=== PATIENT | female | born 1955 | race Caucasian/White ===

== ENCOUNTER 2017-03-12 20:25 | Inpatient (IN) | payer OTHER ==
[~2017-03-12] VITALS: Ht 165.1 cm; Wt 71.2 kg
[2017-03-12 20:50] VITALS: BP 140/95; PULSE 89; RESP 16; O2SAT 97
[2017-03-12 21:14] LABS: BASOPHILS % (AUTO) 0.2 % (0-3); EOSINOPHILS % (AUTO) 1.2 % (0-5); MONOCYTES % (AUTO) 4.8 % (4-12); Mean Corpuscular Hemoglobin 32.2 pg (27.0-35.0); Mean Corpuscular Volume 95.8 fL (81-100); NEUTROPHILS % (AUTO) 80.4 % (40-74); Platelet Count 252 bil/L (150-400)
[2017-03-12 21:35] LABS: Magnesium 2.1 mg/dL (1.6-2.6)
--- NOTE | 2017-03-12 22:02 | ED.REPORT ---
HPI-Abd Pain F 40 and Over Date of Service Mar 12, 2017 ED Provider: Darell Alexis MD Pt is a 61 y/o female w/ a hx of HTN, HLD, presenting to the ED c/o stabbing mid -back pain w/ radiation to the LUQ onset 1 day ago. She c/o associated pleuritic pain. She denies rash, CP, SOB, nausea. She has no history of shingles. She was moving a bunch of tables yesterday and thinks she may have strained her muscle. She was seen at Urgent Care and told to come to the ED for a possible CT scan. Nursing Notes Stated Complaint: ABDOMINAL/BACK PAIN Chief Complaint: Female Abdominal Pain Nursing Notes Reviewed: Yes Allergies: Coded Allergies: Sulfa (Sulfonamide Antibiotics) (Verified Adverse Reaction, Unknown, vomiting, 03/12/17) codeine (Verified Adverse Reaction, Unknown, vomiting, 03/12/17) General Time Seen by MD: 21:55 Chief Complaint Other (back pain) Hx Obtained From: Patient Arrived By: Walk-in Sudden in Onset?: No Onset Occurred: Yesterday Symptom Duration: Since onset Progression since Onset: Constant Location: : Back Quality: Painful, Stabbing Radiation: : LUQ Severity: Current: Moderate Severity: Maximum: Moderate Similar Sx Previous: No Past Medical History Past Medical History Hx PACs Hypertension Hyperlipidemia GERD Fibromyalgia Hypothyroidism Mild anxiety Stuart thyroiditis Cervical spinal stenosis Past Surgical History Colonoscopy Smoking History Unknown if Ever Smoker Social History Drug Use: Denies drug use Ambulatory Status Independent Review of Systems Respiratory: Reports: Pleuritic pain, Denies: Shortness of breath Cardiovascular: Denies: Chest pain GI: Reports: Abdominal pain, Denies: Nausea, Vomiting Musculoskeletal: Reports: Back pain Complete sys rev & neg: except as marked. Skin: Denies Rash Physical Exam Vital Signs Vital Signs (First) Date Time Temp Pulse Resp B/P Pulse Ox O2 Delivery O2 Flow Rate FiO2 03/12/17 20:50 36.9 89 16 140/95 97 Room Air Initial VS: Reviewed, Vital signs normal Head / Eyes: Atraumatic, Normocephalic, PERRL ENT: Mucous membranes moist, Conjunctiva normal, No scleral icterus Neck: Supple, Full range of motion Extremities: Vascular intact, Neuro intact, No swelling, No tenderness Neurologic: Alert, Oriented, Nonfocal Psychiatric: Mood/affect normal, Behavior normal, Normal thought content General/Constitutional: Awake, Alert, No acute distress, Cooperative, Not toxic appearing Respiratory / Chest: Breath sounds NL, Breath sounds = bilat, No respiratory distress, No rales, No rhonchi, No wheezing Cardiovascular: Heart rate NL, Regular rhythm, Heart sounds NL, No murmurs Abdomen: Atraumatic, Soft, No guarding, No rebound, No distention Tenderness/Guarding/Rebound: Positive: Tender LUQ... (Moderate) No rash Back: Full range of motion, Painless range of motion, No midline vertebral tend No rash Skin: Atraumatic, Color NL, No rash, Warm, Dry, Intact, Turgor NL, No swelling Interpretation & Diagnostics Lab Results Interpretation Result Diagram: 03/12/17 21003/12/17 210 Test 03/12/17 21:09 03/12/17 21:10 White Blood Count 10.5th/mm3 (3.8-10.1) Red Blood Count 4.51mil/mm3 (3.90-5.20) Hemoglobin 14.5g/dL (12.0-15.6) Hematocrit 43.2% (35.0-46.0) Mean Corpuscular Volume 95.8fL (81-100) Mean Corpuscular Hemoglobin 32.2pg (27.0-35.0) Mean Corpuscular Hemoglobin Concent 33.6% (32.0-37.0) Red Cell Distribution Width 12.0% (12.3-15.4) Platelet Count 252bil/L (150-400) Neutrophils (%) (Auto) 80.4% (40-74) Lymphocytes (%) (Auto) 13.2% (14-46) Monocytes (%) (Auto) 4.8% (4-12) Eosinophils (%) (Auto) 1.2% (0-5) Basophils (%) (Auto) 0.2% (0-3) Sodium Level 139mEq/L (134-144) Potassium Level 4.2mEq/L (3.5-5.2) Chloride Level 99mEq/L (97-108) Carbon Dioxide Level 24mmol/L (18-29) Blood Urea Nitrogen 10mg/dL (8-27) Creatinine 0.81mg/dL (0.57-1.00) Estimat Glomerular Filtration Rate 103mL/min (>59) Glucose Level 118mg/dL (60-99) Calcium Level 9.5mg/dL (8.5-10.1) Magnesium Level 2.1mg/dL (1.6-2.6) Total Bilirubin 0.3mg/dL (0.0-1.2) Aspartate Amino Transf (AST/SGOT) 36U/L (0-50) Alanine Aminotransferase (ALT/SGPT) 23U/L (0-32) Alkaline Phosphatase 70U/L (25-165) Total Protein 8.1g/dL (6.4-8.4) Albumin 4.6g/dL (3.4-5.0) Lipase 33U/L (13-60) Hold Arredondo Top Tube Received (Received) X-Ray Chest Interpretation Chest Xray Interpretation: IMPRESSION: Mildly reduced inspiratory volume, no acute disease. Dictated by: Wyatt Herron M.D. on 03/12/2017 at 22:01 Approved by: Wyatt Herron M.D. on 03/12/2017 at 22:02 View: Portable, AP & lat Interpretation / Wet Read by: Interpret - Radiologist CT Abd / Pelvis Interpretation Conclusion: 1. 6.3 x 6 cm proximal gastric mass involving the greater curvature with intraluminal and exophytic component is concerning for neoplasm. Trace left pleural effusion. 2. Normal appendix. No free air, abscess, or bowel obstruction. Interpreted by Hiram Shah MD Study type: Abdominal CT IV contrast Interpretation / Wet Read by: Interpret - Radiologist Re-Eval/Medical Decision Med Decision/Clinical Course 61-year-old female with left flank and left upper abdominal pain of one to 2 days duration. Labs are unremarkable. She is found to have a large mass in the back wall of the stomach. This is likely the cause of her pain. There is no significant free fluid and no evidence of intra-abdominal or gastric bleeding. Her case was discussed with Dr. Dhaliwal and with Dr. Chairez. She will be admitted to the hospitalist service with GI and surgical consultation. Source of Hx: Old records Re-Evaluation/Progress : Time of Eval: 00:01 Re-Evaluation/Progress Note: Pt rechecked. Informed pt of need for admission for gastric tumor workup. She understands that this may be cancer. Pt understands and agrees with plan for admission. All questions addressed. Consultation #1: Referral / Consult Name: Patsy Dhaliwal MD Consulted With: Surgeon Call Returned at: 00:00 Delivery Crew Member: Agrees with eval, Agrees with plan Note: Recommends admit to hospitalist for further workup. He will consult during admit if requested. Recommends consult with GI as well. Consultation #2: Referral / Consult Name: Martin Chairez MD Consulted With: Hospitalist Call Returned at: 00:08 Delivery Crew Member: Will see patient, Agrees with eval, Agrees with plan, Accepts admit Counseled Regarding: Diagnosis, Lab results, Need for admission Discharge & Departure Primary Impression: Gastric mass Additional Impression: LUQ abdominal pain Disposition: ADMITTED TO HOSPITAL Discharge Condition All VS Reviewed: Yes Condition: Improved Referrals: Ashley Cotter MD (PCP) Scribe Attestation Portions of this note were transcribed by Emanuel Hogue. I, Dr. Alexis personally performed the history, physical exam and medical decision-making; I reviewed and confirmed the accuracy of the information in the transcribed note. copies to: Ashley Cotter MD, Howard L MD Mar 12, 2017 22:02 EMANUEL HOGUE Mar 12, 2017 22:09
--- NOTE | 2017-03-12 22:04 | DRSVH ---
PROCEDURE: X-RAY CHEST, TWO VIEWS ([id number]) INDICATIONS: pain with deep inspiration TECHNIQUE: 2 views of the chest were acquired. COMPARISON: [facility], , CHEST 1VW (PORTABLE), 06/01/2012, 16:37. FINDINGS: Surgical changes and devices: None. Lungs and pleura: No pleural effusions or pneumothorax. Lungs are clear. Mediastinum: Mediastinal contours are normal. Heart size is normal. Bones and chest wall: No suspicious bony abnormalities. Soft tissues appear unremarkable. IMPRESSION: Mildly reduced inspiratory volume, no acute disease. Dictated by: Wyatt Herron M.D. on 03/12/2017 at 22:01 Approved by: Wyatt Herron M.D. on 03/12/2017 at 22:02
[2017-03-12] MEDS ORDERED: Ondansetron 2 mg/mL 2 mL Inj IVPUSH PRN (22:15)
[2017-03-12 22:26] VITALS: BP 154/91; PULSE 84; RESP 20; O2SAT 98
[2017-03-12] MEDS: HYDROmorphone 0.5 mg/0.5 mL iSecure Syringe IVPUSH PRN ×2 (22:50→23:39)
[2017-03-13] VITALS (9 sets, daily range): BP systolic 118–141; BP diastolic 67–96; PULSE 61–95; RESP 14–20; O2SAT 93–99
[2017-03-13] MEDS ORDERED: Ketorolac 15 mg/mL Inj IVPUSH ONE (00:10)
[2017-03-13] MEDS ORDERED: Ondansetron 2 mg/mL 2 mL Inj IVPUSH PRN (00:35)
[2017-03-13] MEDS ORDERED: Alum-Mag Hydrox-Simeth 30 mL Suspension PO PRN (00:35)
[2017-03-13] MEDS ORDERED: Polyethylene Glycol (PEG) 17 Gm Powder PO PRN (00:35)
[2017-03-13] MEDS: 0.9% Sodium Chloride 1,000 ML IV SCH ×4 (01:15→20:32)
--- NOTE | 2017-03-13 03:37 | PCM.HPMED ---
Subjective Date of Service Mar 13, 2017 Primary Provider: Admitting Physician: Martin Chairez MD Primary Care Physician: Ashley Cotter MD Attending Physician: Martin Chairez MD Chief Complaint: Abdominal pain History of Present Illness: Juana Lane is a 61-year-old woman with past medical history significant for hypertension, hyperlipidemia, GERD, fibromyalgia, hypothyroidism who presented to the [facility] emergency department today from urgent care due to severe sharp left upper quadrant and back pain that started 2 days ago. The patient states that the pain came on rather suddenly and she was nearly in tears from the pain. The pain is worse with movement. Patient denied any nausea , vomiting, diarrhea, constipation, melena, hematochezia. Patient denies any weight loss, chills, fever, night sweats. Patient denies any past history of H. pylori. Patient has had a prior colonoscopy but has never had an upper endoscopy. Patient was referred to the emergency department for a possible CT scan. In the emergency department patient's vital signs were stable. A CT of abdomen and pelvis was obtained which showed a 6.3 cm proximal gastric mass concerning for neoplasm. Dr. Dhaliwal, the refrigeration brazer/solderer surgeon, was contacted and has agreed to consult on the patient and recommended gastroenterology consultation as well. Review of Systems: A comprehensive review of systems was conducted with the patient and found to be negative except as above in the History of Present Illness. Allergies Coded Allergies: shellfish derived (Verified Allergy, Intermediate, 03/13/17) Sulfa (Sulfonamide Antibiotics) (Verified Adverse Reaction, Unknown, vomiting, 03/12/17) codeine (Verified Adverse Reaction, Unknown, vomiting, 03/12/17) Home Medications Juana Lane [id number] 1955 03/12/2017 07:25 PM 08/15 Start Date Medication Directions 07/04/2016 atenolol 25 mg tablet TAKE 1/2 TABLET BY MOUTH TWO TIMES EVERY DAY. estradiol 1 mg tablet take 1 tablet by oral route every day Horizant ER 600 mg tablet,extended release take 1 Tablet by oral route every day with food at about 5 p.m. 12/04/2016 levothyroxine 88 mcg tablet TAKE ONE TABLET BY MOUTH ONE TIME DAILY PROGESTERONE Take 1 (100mg tab) every day 03/22/2014 Vitamin D3 5,000 unit tablet take 1 tablet by oral route every evening PMH History of PACs Hyperlipidemia Hypertension GERD Fibromyalgia Hypothyroidism Anxiety Stuart's thyroiditis Cervical spine stenosis Surgical History Colonoscopy Epidural injections Family History Father has atrial fibrillation. Mother has lymphoma. No history of gastrointestinal cancers Social History Hx Alcohol Use: No Hx Substance Use: No Hx Tobacco Use: No Exam Vital Signs Vital Sign - Last Date Time Temp Pulse Resp B/P Pulse Ox O2 Delivery O2 Flow Rate FiO2 03/12/17 22:26 84 20 154/91 98 Room Air 03/12/17 20:50 36.9 Exam General: No acute distress, well-developed, well-nourished, appropriately interactive HEENT: Normocephalic, atraumatic. External ears without defect. Pupils equal, round, and reactive to light and accommodation. Anicteric sclerae, moist conjunctivae, and no lid lag. Oropharynx free of erythema and cobble stoning with moist mucosa. Neck: Supple with full range of motion. No jugular venous distension. No lymphadenopathy or thyromegaly. Cardiovascular: Regular rate and rhythm with no murmurs, rubs, or gallops appreciated Pulmonary: Clear to auscultation bilaterally with no crackles, wheezes, or rhonchi. Normal respiratory effort with no use of accessory muscles. Abdomen: Bowel tones present. Soft, mild tenderness in the left upper quadrant, nondistended. No hepatosplenomegaly or masses appreciated. Extremities: No clubbing, cyanosis, edema, or lymphadenopathy appreciated. Skin: Normal temperature, turgor, and texture; no rash, ulcers, or subcutaneous nodules appreciated. Neurological: Cranial nerves grossly intact. Normal muscle strength, tone, and bulk. Reflexes, coordination, and sensory function within normal limits. No known gait impairment. Psychiatric: Normal mood and affect. Alert and oriented to person, place, and time. Lab and Diagnostics Result Diagram: 03/12/17210803/12/172108 X-Rays, CTs and MRIs X-RAY CHEST, TWO VIEWS IMPRESSION: Mildly reduced inspiratory volume, no acute disease. Dictated by: Wyatt Herron M.D. on 03/12/2017 at 22:01 CT Abd / Pelvis Interpretation Conclusion: 1. 6.3 x 6 cm proximal gastric mass involving the greater curvature with intraluminal and exophytic component is concerning for neoplasm. Trace left pleural effusion. 2. Normal appendix. No free air, abscess, or bowel obstruction. Interpreted by Hiram Shah MD Study type: Abdominal CT IV contrast Assessment & Plan Juana Lane is a 61-year-old woman with past medical history significant for hypertension, hyperlipidemia, GERD, fibromyalgia, hypothyroidism who presented to the [facility] emergency department today from urgent care due to severe left upper quadrant and back pain that started 2 days ago. 6.3 x 6 cm proximal gastric mass, present on admission, active -Involving the greater curvature with intraluminal and exophytic component, concerning for neoplasm. -Dr. Dhaliwal consulted by the emergency department and has kindly agreed to see the patient. -Gastroenterology consultation to be obtained. Order placed, day team to contact. Chronic issues, present on admission, stable: Hypertension -Continue home medications Stuart's thyroiditis, in hypothyroid phase -Continue levothyroxine CODE STATUS: Full code Patient is admitted under inpatient status with expected length of stay greater than 2 midnights due to severity of presenting symptoms, risk of adverse event, and complexity of treatment plan. Attending Statement The patient was seen and examined together with Dr. Allred on 03/13 and I agree with the history, exam and plan as outlined in the note above. Yumiko Allred DO Mar 13, 2017 01:01 Martin Chairez MD Mar 13, 2017 03:52
[2017-03-13] MEDS ORDERED: LEVO88TA4 PO (03:59)
[2017-03-13] MEDS ORDERED: ATEN25TA PO (03:59)
[2017-03-13] MEDS ORDERED: ESTR1TAB24 PO (03:59)
[2017-03-13] MEDS ORDERED: PROG100C6 PO (03:59)
[2017-03-13] MEDS: HYDROmorphone 0.5 mg/0.5 mL iSecure Syringe IVPUSH PRN (05:28)
--- NOTE | 2017-03-13 08:11 | DRSVH ---
PROCEDURE: CT ABDOMEN AND PELVIS WITH CONTRAST ([id number]) INDICATIONS: LUQ abd pain TECHNIQUE: After the administration of intravenous contrast, 5 mm thick sections acquired from the diaphragm to the symphysis. 5 mm coronal and sagittal reformats were acquired. For radiation dose reduction, the following was used: automated exposure control, adjustment of mA and/or kV according to patient siz e. COMPARISON: None. FINDINGS: Preliminary report by overnight cashier radiology Image quality: Excellent. ABDOMEN: Lung bases: Lung bases are clear. Small left pleural effusion. Heart size is normal. Solid organs: Liver and spleen are normal in size and enhancement. Gallbladder is contracted. Bili layla system is non dilated. Pancreas enhances normally. No adrenal nodules. Kidneys demonstrate nor mal size and enhancement, without hydronephrosis. Peritoneum and bowel: A lobulated, partially calcified intrinsic and partially exophytic greater cur vature gastric mass is present. The mass measures 6.1 x 6.6 x 6.0 cm in size. The inferolateral porti on of the mass obliterates the fat plane between the mass and the spleen, possibly representing extri nsic splenic invasion. The also noted in the dependent portion of the stomach adjacent to the mass is a 1.4 x 1.8 cm oval radiodensity that could represent calcification or ingested tablet. Distally the stomach and duodenum appear normal. Small bowel loops demonstrate normal wall thickness and caliber. Normal appendix. Scattered colonic diverticulosis. No free fluid or air. Nodes and vessels: No retroperitoneal or mesenteric adenopathy by size criteria. Aorta and inferior vena cava are normal in size. Miscellaneous: No ventral hernias. PELVIS: Genitourinary: Bladder wall thickness is normal. Uterus and ovaries are unremarkable. Miscellaneous: No inguinal hernias or adenopathy. Bones: No suspicious bony lesions. No vertebral body compression fractures. Degenerative disc disea se with reactive sclerosis and grade 1 anterolisthesis L5-S1. L5 pars defects. Mild disc narrowing L4 -5. IMPRESSION: 1. Large greater curvature gastric mass with dystrophic calcifications and possible splenic invasion, highly suspect for malignancy. 2. Small left pleural effusion, probably reactive but indeterminate. 3. No evidence of osseous, organic or lee metastases. 4. Colonic diverticulosis without diverticulitis. 5. Degenerative lumbar disc disease. Spondylo-lysis and spondylolisthesis L5. Findings are concordant with the preliminary report. Dictated by: Go Machado M.D. on 03/13/2017 at 7:57 Approved by: Go Machado M.D. on 03/13/2017 at 8:09
[2017-03-13] MEDS ORDERED: Propofol 10,000 mCg/mL 20 mL Inj ONE (11:28)
--- NOTE | 2017-03-13 11:35 | PCM.CONSUR ---
Subjective Date of Service: Mar 13, 2017 History of Present Illness Ms. Lane is a 61 year old female who was in her usual state of health until 2 days when she gradually developed left mid back pain. This pain persisted and yesterday gave way to severe left upper quadrant abdominal pain. She describes the abdominal pain as sharp, radiating through to her back and unlike any abdominal pain she has experienced in the past. The pain worsens with movement and seems to be improve by laying still. Given the LUQ pain did not kieran, the patient decided to be evaluated in the ED. There she was found to have a large mass of the greater curve of her stomach, thereby prompting general surgery consult. With further questioning, the patient denies any nausea, vomiting, change in stools, SOB, chest pain, jaundice,adenopathy, or unexplained weight change. Reason for Consultation Gastric mass Allergy Allergies: Coded Allergies: shellfish derived (Verified Allergy, Intermediate, 03/13/17) Sulfa (Sulfonamide Antibiotics) (Verified Adverse Reaction, Unknown, vomiting, 03/12/17) codeine (Verified Adverse Reaction, Unknown, vomiting, 03/12/17) Medications Atenolol (Atenolol) 25 Mg Tablet 25 MG PO BID (Reported) Last Taken: 12.5 mg on 03/12/17 1800 Estradiol (Estradiol) 1 Mg Tablet 1 MG PO DAILY (Reported) Last Taken: 1 mg on 03/12/17 1800 Levothyroxine (Levothyroxine) 88 Mcg Tablet 88 MCG PO DAILY (Reported) Last Taken: 88 mcg on 03/12/17 0600 Progesterone,Micronized (Progesterone) 100 Mg Capsule 100 MG PO DAILY (Reported) Last Taken: 100mg on 03/12/17 1800 Past Surgical History Surgeries: Yes () Patient/Family Past Surgical: Positive for:: Accept Blood Products?, Denies:: Anesthesia Reactions, Blood Transfusions Social History 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 Hx Alcohol Use: No Hx Substance Use: No Hx Tobacco Use: No PMH HEENT History History of ENT Problems?: Yes HEENT History: Positive for:: Cataracts Sinus Problem (ALLERGIES) Denies:: Dysphagia Glaucoma Cardiovascular History History of Heart Problems?: Yes Cardiovascular History: Positive for:: Hypertension Irregular Heartbeat (pac'S) Denies:: Cardiac Surgery Chest Pain Congestive Heart Failure Edema Heart Murmur Pacemaker Thrombophlebitis Respiratory History of Respiratory Problem: No Neurological History Hx Neurologic Problems?: Yes Neurological History: Positive for:: Dizziness Denies:: Alzheimer's Disease CVA Dementia Headaches Parkinson's Disease Seizures Other Neurological History: FIBROMYALGIA AND NEUROPATHY Gastrointestinal History HX of GI Problems?: Yes Gastrointestinal History: Positive for:: Gastroesphageal Reflux Heartburn Denies:: Diverticulitis Gastrointestinal Bleeding Hepatitis Hiatal Hernia Rectal Bleeding Genitourinary History Hx of Gu Problems?: No Genitourinary History: Denies: HX of Hemodialysis Kidney Stones Urinary Tract Infection Female/Male History Reproductive History Female: Denies: Currently ? Endometriosis Pelvic Inflammatory DX Problems with Breasts? Musculoskeletal History Hx Musculoskeletal Problems?: Yes Musculoskeletal History: Positive for:: Back Injury Denies:: Joint Replacement Musculoskeletal Trauma Psycho Social History Hx of Psycho/Social Problems?: No Other History Other History: Positive for:: Thyroid Disease (hashimotos ) Social History Hx Alcohol Use: NoHx Substance Use: NoHx Tobacco Use: No Living Arrangement: with Family Family History Family History: The patient's mother had lymphoma of the intestine treated with chemotherapy Objective Exam Vital Signs & I/O Vital Sign- Last 8 Hours Date Time Temp Pulse Resp B/P Pulse Ox O2 Delivery O2 Flow Rate FiO2 03/13/17 10:15 36.5 95 18 125/71 99 Room Air 03/13/17 05:35 36.5 61 18 118/70 97 Room Air Intake and Output- Last 8 Hour 03/13/17 Cumulative From/Thru 07:00 03/12/17 20:50 - 03/13/17 06:56 Intake Total 368 ml 368 ml Output Total 0 ml 0 ml Balance 368 ml 368 ml Intake Oral 0 ml 0 ml IV Total 368 ml 368 ml Output Urine Total 0 ml 0 ml Lab & Micro Results Laboratory Tests Test 03/12/17 21:09 03/12/17 21:10 03/13/17 01:16 White Blood Count 10.5th/mm3 (3.8-10.1) Red Blood Count 4.51mil/mm3 (3.90-5.20) Hemoglobin 14.5g/dL (12.0-15.6) Hematocrit 43.2% (35.0-46.0) Mean Corpuscular Volume 95.8fL (81-100) Mean Corpuscular Hemoglobin 32.2pg (27.0-35.0) Mean Corpuscular Hemoglobin Concent 33.6% (32.0-37.0) Red Cell Distribution Width 12.0% (12.3-15.4) Platelet Count 252bil/L (150-400) Neutrophils (%) (Auto) 80.4% (40-74) Lymphocytes (%) (Auto) 13.2% (14-46) Monocytes (%) (Auto) 4.8% (4-12) Eosinophils (%) (Auto) 1.2% (0-5) Basophils (%) (Auto) 0.2% (0-3) Sodium Level 139mEq/L (134-144) Potassium Level 4.2mEq/L (3.5-5.2) Chloride Level 99mEq/L (97-108) Carbon Dioxide Level 24mmol/L (18-29) Blood Urea Nitrogen 10mg/dL (8-27) Creatinine 0.81mg/dL (0.57-1.00) Estimat Glomerular Filtration Rate 103mL/min (>59) Glucose Level 118mg/dL (60-99) Calcium Level 9.5mg/dL (8.5-10.1) Magnesium Level 2.1mg/dL (1.6-2.6) Total Bilirubin 0.3mg/dL (0.0-1.2) Aspartate Amino Transf (AST/SGOT) 36U/L (0-50) Alanine Aminotransferase (ALT/SGPT) 23U/L (0-32) Alkaline Phosphatase 70U/L (25-165) Total Protein 8.1g/dL (6.4-8.4) Albumin 4.6g/dL (3.4-5.0) Lipase 33U/L (13-60) Hold Arredondo Top Tube Received (Received) Hold Urine Received (Received) Result Diagram: 03/12/17210803/12/172108 Review of Systems: Constitutional: Negative, except as otherwise mentioned in the history above. Ophthalmologic: Negative, except as otherwise mentioned in the history above. Cardiovascular: Negative, except as otherwise mentioned in the history above. Respiratory: Negative, except as otherwise mentioned in the history above. Gastrointestinal: Negative, except as otherwise mentioned in the history above. Genitourinary: Negative, except as otherwise mentioned in the history above. Musculoskeletal: Negative, except as otherwise mentioned in the history above. Neurological: Negative, except as otherwise mentioned in the history above. Psychiatric: Negative, except as otherwise mentioned in the history above. Hematologic/Lymphatic: Negative, except as otherwise mentioned in the history above. Allergic/Immunologic: Negative, except as otherwise mentioned in the history above. Additional Information CT A/P: A lobulated, partially calcified intrinsic and partially exophytic greater curvature gastric mass is present. The mass measures 6.1 x 6.6 x 6.0 cm in size. The inferolateral portion of the mass obliterates the fat plane between the mass and the spleen, possibly representing extrinsic splenic invasion. The also noted in the dependent portion of the stomach adjacent to the mass is a 1.4 x 1.8 cm oval radiodensity that could represent calcification or ingested tablet. Distally the stomach and duodenum appear normal. Small bowel loops demonstrate normal wall thickness and caliber. Normal appendix. Scattered colonic diverticulosis. No free fluid or air. Nodes and vessels: No retroperitoneal or mesenteric adenopathy by size criteria. Aorta and inferior vena cava are normal in size. H&P Surgical Exam Exam General: Alert, Oriented X3, Cooperative HEENT: Within normal limits & unremarkable Neck: Within normal limits & unremarkable Respiratory: Clear to Auscultation Cardiac: Regular Rate/Rhythm, No Murmurs/Rubs/Gallops Abdomen: Normal bowel sounds, Soft, No tenderness, No masses Assessment & Plan Assessment 61F who presented with acute abdominal pain and was found to have a large exophytic mass along the greater curvature of her stomach. Certainly this mass is concerning for malignancy, and we need tissue diagnosis before proceeding with further workup or treatment. Plan: - Agree with plans for EGD with gastroenterology to obtain biopsy - Further surgical management pending pathology - Patient can likely be discharged and follow up as an outpatient - Ok for diet as tolerated as there is no evidence of GOO on axial imaging - Surgery will continue to follow. Please do not hesitate to call with questions or concerns. William Ross MD Mar 13, 2017 11:35
[2017-03-13] MEDS ORDERED: fentaNYL-PF 50 mCg/mL 2 mL Inj IVPUSH PRN (13:45)
--- NOTE | 2017-03-13 14:29 | PCM.CHPMED ---
Subjective Date of Service: Mar 13, 2017 Primary Physician: Admitting Physician: Martin Chairez MD Primary Care Physician: Ashley Cotter MD Attending Physician: Danny Domingo MD Chief Complaint: Chief Complaint: Abdominal pain History of Present Illness: Gastroenterology Consult Note Juana Lane is a 61-year-old woman with past medical history significant for hypertension, hyperlipidemia, GERD, fibromyalgia, hypothyroidism who presented to the [facility] emergency department yesterday evening from urgent care due to severe sharp left upper quadrant and back pain that started 3 days ago. We, gastroenterology, have been consulted due to CT findings of a 6.3 cm proximal gastric mass concerning for neoplasm. Of note the patient was in her general state of health prior to Saturday. The patient's symptoms started with some mild left lower back pain that she attributed to muscle spasm due to setting up for a family reunion that day. Pain continued and she was unable to sleep on her left side that evening. The next day, Saturday, she developed left upper quadrant sharp stabbing pain that has been consistent and not resolved since this time. The pain has progressively worsened which precipitated her presentation to urgent care and subsequently the ED. Patient denies any associated nausea, vomiting, fever, chills, melena, hematochezia, hematemesis, or weight loss. She has noted no worsening of her heartburn although she does have this intermittently which she treats with [id number] antacids. Patient denies any NSAID use as this upsets her stomach. Patient has no family history of gastric cancers although her mother did have lymphoma. Patient has never had an EGD. She did have a colonoscopy in 2005 which was normal and was told to follow-up in 10 years. Review of Systems: A comprehensive review of systems was conducted with the patient and found to be negative except as above in the History of Present Illness. PMH Past Medical History History of PACs Hyperlipidemia Hypertension GERD Fibromyalgia Hypothyroidism Anxiety Stuart's thyroiditis Cervical spine stenosis Surgical History Colonoscopy Epidural injections Home Medications Juana Lane [id number] 1955 03/12/2017 07:25 PM 08/15 Start Date Medication Directions 07/04/2016 atenolol 25 mg tablet TAKE 1/2 TABLET BY MOUTH TWO TIMES EVERY DAY. estradiol 1 mg tablet take 1 tablet by oral route every day Horizant ER 600 mg tablet,extended release take 1 Tablet by oral route every day with food at about 5 p.m. 12/04/2016 levothyroxine 88 mcg tablet TAKE ONE TABLET BY MOUTH ONE TIME DAILY PROGESTERONE Take 1 (100mg tab) every day 03/22/2014 Vitamin D3 5,000 unit tablet take 1 tablet by oral route every evening Allergies: Coded Allergies: shellfish derived (Verified Allergy, Intermediate, 03/13/17) Sulfa (Sulfonamide Antibiotics) (Verified Adverse Reaction, Unknown, vomiting, 03/12/17) codeine (Verified Adverse Reaction, Unknown, vomiting, 03/12/17) Family History Family History Father has atrial fibrillation. Mother has lymphoma. No history of gastrointestinal cancers. Social History Hx Alcohol Use: NoHx Substance Use: NoHx Tobacco Use: No Exam Vital Signs Vital Sign - Last Date Time Temp Pulse Resp B/P Pulse Ox O2 Delivery O2 Flow Rate FiO2 03/13/17 10:15 36.5 95 18 125/71 99 Room Air Intake and Output 03/12/17 03/12/17 03/13/17 Cumulative From/Thru 15:00 23:00 07:00 03/12/17 20:50 - 03/13/17 06:56 Intake Total 368 ml 368 ml Output Total 0 ml 0 ml Balance 368 ml 368 ml Intake Oral 0 ml 0 ml IV Total 368 ml 368 ml Output Urine Total 0 ml 0 ml General: Alert, Oriented X3, No Acute Distress Head: Normal Eyes: PERRLA, Scleral Anicteric Nose: Mucous Membr Moist/Isola Mouth: Mucous Membranes Dry Neck: Supple Chest & Lungs: Chest Wall Normal, Clear to auscultation & percussion Cardiovascular: Regular Rate/Rhythm, No Murmurs/Rubs/Gallops Abdomen: Tender (mild, LUQ), Non-distended, Normoactive bowel tones Musculoskeletal: Unremarkable, Normal Range of Motion Extremities: No cyanosis/clubbing/edma bilat Neurological: Grossly Neurologically Intact, Cranial Nerves 2-12 Intact Lab and Diagnostics Result Diagram: 03/12/17210803/12/172108 X-Rays, CTs and MRIs CT ABDOMEN AND PELVIS WITH CONTRAST ([id number]) IMPRESSION: 1. Large greater curvature gastric mass with dystrophic calcifications and possible splenic invasion, highly suspect for malignancy. 2. Small left pleural effusion, probably reactive but indeterminate. 3. No evidence of osseous, organic or lee metastases. 4. Colonic diverticulosis without diverticulitis. 5. Degenerative lumbar disc disease. Spondylo-lysis and spondylolisthesis L5. Dictated by: Go Machado M.D. on 03/13/2017 at 7:57 Approved by: Go Machado M.D. on 03/13/2017 at 8:09 Assessment & Plan Assessment Juana Lane is a 61-year-old woman with past medical history significant for hypertension, hyperlipidemia, GERD, fibromyalgia, hypothyroidism who presented to the [facility] emergency department yesterday evening from urgent care due to severe sharp left upper quadrant and back pain that started 3 days ago. Gastroenterology has been consulted due to CT findings of a 6.3 cm proximal gastric mass concerning for neoplasm. Recommendations: - Patient scheduled for endoscopic biopsy this afternoon. - Further recommendations pending pathology results from endoscopic biopsy. - Patient to remain nothing by mouth until after procedure. - Surgery has been consulted and we appreciate their recommendations as they will likely ultimately guide her treatment. - Patient will also likely need to oncology consult once pathology returns. Thank you for involving us in this patient's care. We will continue to follow. Problems: Pain Evaluation: Adequate Pain Control Resuscitation Status: CPR: Attempt Resuscitation Attending Statement Patient seen and examined. Agree with assessment and plan as described by Dr Bernal. AIDEN BERNAL DO Mar 13, 2017 10:40 Sd Sandoval MD Mar 13, 2017 22:43
--- NOTE | 2017-03-13 14:40 | PCM.ANEP1 ---
Post Anesthesia PACU Phase 1 Assessment Vital Signs Vital Signs Date Time Temp Pulse Resp B/P Pulse Ox O2 Delivery O2 Flow Rate FiO2 03/13/17 13:39 68 17 127/77 98 Room Air 03/13/17 10:15 36.5 95 18 125/71 99 Room Air Anesthetic Administered: GA, MAC Level of Alertness: Awake, talking LEON's with Equal Strength: Yes Pain: No Pain Scale Score: 5 Nausea or Vomiting: No CV Function & Hydration Stable: No Airway Device: n/a Oxygen Delivery: Nasal Cannula Lungs: Clear to Auscultation, Normal Air Movement Dermatome Level: Full Sensation PACU Phase 2 Assessment Complications: No Follow up Care: N/A Patient Instructions Provided: N/A Yobany Mcqueen MD Mar 13, 2017 14:40
--- NOTE | 2017-03-13 14:40 | PCM.HPANE ---
Patient Data Surgeon Admitting Provider:Martin Chairez MD Attending Provider:Danny Domingo MD Primary Care Physician:Ashley Cotter MD Other Provider: Reason for Visit Gastric Tumor Ht/WT & BMI Height (Feet): 5 Height (Inches): 5.00 Weight (Kilograms): 71.200 Body Mass Index 26.00 Allergies Coded Allergies: shellfish derived (Verified Allergy, Intermediate, 03/13/17) Sulfa (Sulfonamide Antibiotics) (Verified Adverse Reaction, Unknown, vomiting, 03/12/17) codeine (Verified Adverse Reaction, Unknown, vomiting, 03/12/17) Past Anesthesia History Anesthesia History: Denies:: Abnormal Airway, Anesthesia Reactions, Difficult Intubation, Fam Anesthesia Reaction, Fam Malignant Hypertherm, Malignant Hyperthermia Diabetes History Hx Diabetes?: No MRSA MRSA: No Medications Reported Medications Levothyroxine 88 Mcg [id number] Mcg PO DAILY Ref 0 03/13/17 Atenolol 25 Mg [id number] Mg PO BID #30 TABLET Ref 0 03/13/17 Progesterone,Micronized (Progesterone)100 Mg [id number] Mg PO DAILY 03/13/17 Estradiol 1 Mg Tablet1 Mg PO DAILY Ref 0 03/13/17 History History of ENT Problems?: Yes HEENT History: Positive for:: Cataracts Sinus Problem (ALLERGIES) Denies:: Abnormal Airway Difficult Intubation Dysphagia Glaucoma Hearing Problem TMJ Denture Type: None Teeth Condition: Within Normal Limits Hx of Heart Problems?: Yes Cardiovascular History: Positive for:: Hypertension Irregular Heartbeat (pac'S) Denies:: AICD Abdominal Aortic Aneurism Atrial Fibrillation Cardiac Surgery Chest Pain Congestive Heart Failure Coronary Artery Disease Edema Heart Murmur Pacemaker Peripheral Vascular Rheumatic Fever Thrombophlebitis Valvular Heart Disease Hx of Respiratory Problem?: No Respiratory History: Denies:: Asthma COPD Chest Surgery Cough Dyspnea Emphysema Hemoptysis Oxygen Administration Pneumonia Pulmonary Embolism Tuberculosis Use of C-PAP Machine Use of Inhalers / NEBS Hx Neurologic Problems?: Yes Neurological History: Positive for:: Dizziness Denies:: Alzheimer's Disease CVA Dementia Headaches Multiple Sclerosis Parkinson's Disease Peripheral Neuropathy Seizures TIA Other Neurological Pertinent: FIBROMYALGIA AND NEUROPATHY Hx of GI Problems?: Yes Gastrointestinal History: Denies:: Cirrhosis Diverticulitis Gall Bladder Disease Gastroesphageal Reflux Gastrointestinal Bleeding Heartburn Hepatitis Hiatal Hernia Liver Disease Rectal Bleeding Hx of Problems?: No Genitourinary History: Denies:: HX of Hemodialysis Kidney Stones Urinary Tract Infection HX of Peritoneal Dialysis: No Female Hx: Denies:: Currently Endometriosis Pelvic Inflammatory Problems with Breasts? Skin History: Denies:: History Skin Disorders? Pressure Ulcers Hx Musculoskeletal Problems?: Yes Musculoskeletal History: Positive for:: Back Injury Denies:: Degenerative Joint Fibromyalgia Joint Replacement Musculoskeletal Trauma Myasthenia Gravis Osteoarthritis Rheumatoid Arthritis Systemic Lupus Hx of Psycho/Social Problems?: No Psycho Social History: Denies:: Anxiety Bipolar Disorder Hx Depression Suicide Attempt Hx Surgeries?: Yes () Other History: Positive for:: Thyroid Disease (hashimotos ) History Blood Transfusions: Positive for:: Accept Blood Products? Denies:: Blood Transfusions Hx Diabetes: No Hx Alcohol Use: NoHx Substance Use: No Smoking Status: Never Smoker Have You Smoked inLast 12 mo: No Stop/Bang Treated for Sleep Apnea?: No Do You Have a CPAP Machine?: No S-Snoring: Do You Snore Loudly: Yes T-Tired: feel tired, fatigued: Yes O-Obsered: Observed not breath: No P-Blood Pressure: treated: Yes B- Body Mass Index > 35 kg/m2: No A- Age over 50: Yes N- Neck Large Circumference: No G- Gender Male: No JAJA Total Score: 4 Risk Assessment Category Category 1A: Patient has history of documented sleep apnea, and HAS NOT received any narcotic, sedative or anesthesia administration during this stay. Category 1B: Patient has history of documented sleep apnea, and HAS received any narcotic , sedative or anesthesia administration during this stay Category 2: Patient has SUSPECTED Obstructive Sleep Apnea, and HAS received any narcotic , sedative or anesthesia administration during this stay. Category 3: Patient has SUSPECTED Obstructive Sleep Apnea and HAS NOT received narcotic, sedative or anesthesia administration during this stay. Category 4: Outpatient in Procedural Areas with known sleep apnea or who screen positive for High Risk via the STOP/BANG questionnaire. Exam Exam Vital Signs Vital Signs Date Time Temp Pulse Resp B/P Pulse Ox O2 Delivery O2 Flow Rate FiO2 03/13/17 13:39 68 17 127/77 98 Room Air 03/13/17 10:15 36.5 95 18 125/71 99 Room Air General Appearance: Alert, Oriented X3, Cooperative, No Acute Distress HEENT/AIRWAY: MP 2, Neck Movement (from), Mouth Opening (3 fbMO) Lungs: Clear to Auscultation, Normal Air Movement Heart: Exam Unremarkable, Regular Rate/Rhythm, No Murmurs/Rubs/Gallops Meds/Labs/Diagnostics Admission Meds Current Medications Lorazepam (Ativan Inj) 0.5 mg ONCE ONCE IVPUSH Last administered on 03/13/17 00:20; Start 03/13/17 at 00:10; Stop 03/13/17 at 00:11; Status DC Ketorolac Tromethamine 15 mg 15 mg ONCE ONCE IVPUSH Last administered on 00:20; Start 03/13/17 at 00:10; Stop 03/13/17 at 00:11; Status DC Sodium Chloride (Normal Saline) 1,000 ml @ 100 mls/hr Q10H IV Last administered on 03/13/17 13:50; Start 03/13/17 at 00:32 Labs Test 03/12/17 21:09 03/12/17 21:10 03/13/17 01:16 White Blood Count 10.5th/mm3 (3.8-10.1) Red Blood Count 4.51mil/mm3 (3.90-5.20) Hemoglobin 14.5g/dL (12.0-15.6) Hematocrit 43.2% (35.0-46.0) Mean Corpuscular Volume 95.8fL (81-100) Mean Corpuscular Hemoglobin 32.2pg (27.0-35.0) Mean Corpuscular Hemoglobin Concent 33.6% (32.0-37.0) Red Cell Distribution Width 12.0% (12.3-15.4) Platelet Count 252bil/L (150-400) Neutrophils (%) (Auto) 80.4% (40-74) Lymphocytes (%) (Auto) 13.2% (14-46) Monocytes (%) (Auto) 4.8% (4-12) Eosinophils (%) (Auto) 1.2% (0-5) Basophils (%) (Auto) 0.2% (0-3) Sodium Level 139mEq/L (134-144) Potassium Level 4.2mEq/L (3.5-5.2) Chloride Level 99mEq/L (97-108) Carbon Dioxide Level 24mmol/L (18-29) Blood Urea Nitrogen 10mg/dL (8-27) Creatinine 0.81mg/dL (0.57-1.00) Estimat Glomerular Filtration Rate 103mL/min (>59) Glucose Level 118mg/dL (60-99) Calcium Level 9.5mg/dL (8.5-10.1) Magnesium Level 2.1mg/dL (1.6-2.6) Total Bilirubin 0.3mg/dL (0.0-1.2) Aspartate Amino Transf (AST/SGOT) 36U/L (0-50) Alanine Aminotransferase (ALT/SGPT) 23U/L (0-32) Alkaline Phosphatase 70U/L (25-165) Total Protein 8.1g/dL (6.4-8.4) Albumin 4.6g/dL (3.4-5.0) Lipase 33U/L (13-60) Hold Arredondo Top Tube Received (Received) Hold Urine Received (Received) Plan Impression Patient chart reviewed, patient interviewed and anesthestic plan with risks, benefits, and alternatives discussed, and informed consent obtained. NPO per Anesth. Guidelines: Yes ASA Physical Status: ASA2 Mod Systemic Disease Anesthetic Plan: GA, MAC Bene/Risks/Altern/Consents: Yes HP Complete Prior to Induction: Yes Yobany Mcqueen MD Mar 13, 2017 13:59
--- NOTE | 2017-03-13 15:07 | ENDO ---
[address] [address] ENDOSCOPY PROCEDURE PATIENT: JIM NEAL : 1955 MR#: [id number] ADMIT: 03/13/2017 JOB ID: [id number] DATE OF SERVICE: 03/13/2017 PROCEDURE: Esophagogastroduodenoscopy with biopsies. INDICATIONS: A 61-year-old female with acute onset of left upper quadrant pain. CAT scan revealed a gastric mass lesion. EGD is pursued. EQUIPMENT: GIFH-180J SEDATION: Monitored anesthesia as provided by Dr. Yobany Mcqueen (the patient reports that she has had a prior conscious sedation procedure; it in essence failed and she was quite uncomfortable in spite of these medications during colonoscopy some years ago.) COMPLICATIONS: None identified. PROCEDURE INFORMATION: After the risks and benefits were explained, written and verbal informed consent was obtained. The patient was brought into the endoscopy suite and placed into the left lateral decubitus position. Sedation was achieved as above. The scope was introduced into the mouth through the bite block, and advanced to the second portion of the duodenum. The scope was slowly withdrawn to carefully examine the mucosa for any defects or lesions. Retroflexed views were accomplished in the stomach. The stomach was decompressed. The scope removed from the patient who tolerated the procedure well. FINDINGS: 1. Duodenum: This appeared visually unremarkable from the bulb through to the second portion. 2. Esophagus: The squamocolumnar junction correlated with the top of the gastric folds. The GEJ was at about 39 cm from the incisors. The patient had an element of erosive change in the distal esophagus just proximal to the GE junction but no mass effect. The GEJ appeared slightly irregular and I suspect this may just be an element of some mild inflammation right at the cardia side of the GE junction. This was biopsied for histopathologic analysis. 3. Stomach: The patient had a large submucosal multilobulated very firm mass lesion involving the gastric body. This seemed to be about 5 cm or so from the level of the cardia/GE junction. The lesion appeared to be somewhere in the neighborhood of about 4 or 5 cm. There was an element of umbilication in one location consistent with slight ulceration. No evidence of any ongoing bleeding. A couple of large capacity biopsies were acquired. This was quite a vascular lesion and oozed blood for a little longer than would be normal following forceps but spontaneous hemostasis was observed. ENDOSCOPIC DIAGNOSES: 1. Large submucosal gastric body mass lesion. 2. Gastroesophageal junction subtle irregularity - biopsied. 3. Diminutive gastric polyps (not mentioned above). 4. Mild esophagitis. RECOMMENDATIONS: 1. Await histopathology. 2. Anti-reflux therapy would be quite reasonable considering the changes seen at the GE junction and in the distal esophagus. 3. Even if histology is nondiagnostic, because of the apparent submucosal nature of this lesion, I would recommend surgery considering the patient's presentation with symptoms and the very irregular appearance of this lesion. Overall it is quite concerning for malignancy. 4. This would not be surprising if it turns out to be a GIST. However other submucosal lesions obviously remain in the differential.
[2017-03-14 04:32] VITALS: BP 127/77; PULSE 73; RESP 16; O2SAT 98
[2017-03-14] MEDS: HYDROmorphone 0.5 mg/0.5 mL iSecure Syringe IVPUSH PRN (05:22)
[2017-03-14] MEDS: 0.9% Sodium Chloride 1,000 ML IV SCH (06:32)
[2017-03-14] MEDS ORDERED: Pantoprazole 20 mg ER24 Tablet PO SCH (07:30)
[2017-03-14 07:58] LABS: BASOPHILS % (AUTO) 0.3 % (0-3); EOSINOPHILS % (AUTO) 4.3 % (0-5); MONOCYTES % (AUTO) 5.2 % (4-12); Mean Corpuscular Volume 96.3 fL (81-100); NEUTROPHILS % (AUTO) 61.8 % (40-74); Platelet Count 235 bil/L (150-400)
[2017-03-14 08:30] LABS: ERYTHROCYTE SEDIMENTATION RATE 17 mm/hr (0-40)
--- NOTE | 2017-03-14 09:14 | PCM.DIMED ---
Discharge Instructions Date of Service Mar 14, 2017 Dates of Hospitalization Mar 13, 2017 at 00:16 Discharge Diagnosis Discharge Diagnosis # Large submucosal gastric body mass lesion, present on admission, active #Hypertension #Stuart's thyroiditis, in hypothyroid phase Test Results Test Results ENDOSCOPIC DIAGNOSES: 1. Large submucosal gastric body mass lesion. 2. Gastroesophageal junction subtle irregularity - biopsied. 3. Diminutive gastric polyps 4. Mild esophagitis. Patient Instructions Patient Instructions you were hospitalized due to abdominal pain and found to have large gastric mass. You underwent endoscopy and mass biopsied. Please follow-up with surgeon in 1 week for biopsy results and subsequent management. You also had endoscopic findings of possible acid reflux. Please take Protonix 20 mg by mouth twice a day. Follow-up Provider: Ashley Cotter MD Follow-up with PCP in: 2 weeks Provider: Patsy Dhaliwal MD Follow-up in: 1 week Danny Domingo MD Mar 14, 2017 09:14
[2017-03-14] MEDS ORDERED: PANT20TA2 PO (09:21)
[2017-03-14] MEDS ORDERED: HYDR2TAB28 PO (09:21)
--- NOTE | 2017-03-14 10:54 | PCM.PNSURG ---
Subjective Date of Service: Mar 14, 2017 Date of Service: Mar 14, 2017 Visit Information: Reason for Visit Gastric Tumor Surgery/Surgery Date Post-Op Day # Date of Admission: Mar 13, 2017 at 00:16 Hospital Day # Subjective: Gastroenterology Progress Note No acute events overnight. Patient had some difficulty sleeping as she normally sleeps on her side but due to the pain she has to sleep on her back. Pain is controlled with current pain medication regimen. She denies any nausea , vomiting, or change in bowel habits. Patient has had extensive discussion with surgery and outpatient appointment is scheduled for 03/21/2017 to discuss surgical intervention after pathology of gastric mass returns. No other complaints. Patient is awaiting discharge. Postop General: No Complaints Objective Vital Sign- Last 8 Hours Date Time Temp Pulse Resp B/P Pulse Ox O2 Delivery O2 Flow Rate FiO2 03/14/17 04:32 36.5 73 16 127/77 98 Room Air Intake and Output- Last 8 Hour 03/14/17 Cumulative From/Thru 07:00 03/12/17 20:50 - 03/14/17 05:50 Intake Total 200 ml 2168 ml Output Total 750 ml 1750 ml Balance -550 ml 418 ml Intake Oral 200 ml 1600 ml IV Total 568 ml Output Urine Total 750 ml 1750 ml # Bowel Movements 0 0 General: Alert, Oriented X3, No Acute Distress Neck: Supple Lungs: Clear to Auscultation Heart: Regular Rate/Rhythm, No Murmurs/Rubs/Gallops Abdomen: Benign, Appropriately tender (diffusely tender in the left upper quadrant), Normoactive bowel tones Extremities: Distal Pulses Palpable, Warm Neuro: Cranial Nerves 2-12 nl, Grossly Neurologically Intact Catheters: None Result Diagram: 03/14/17 0740 03/14/17 0740 Assessment & Plan Impression Juana Lane is a 61-year-old woman with past medical history significant for hypertension, hyperlipidemia, GERD, fibromyalgia, hypothyroidism who presented to the [facility] emergency department yesterday evening from urgent care due to severe sharp left upper quadrant and back pain that started 3 days ago. Gastroenterology was consulted due to CT findings of a 6.3 cm proximal gastric mass concerning for neoplasm. EGD with biopsies was completed on 03/13/17. Surgery is seeing the patient set up an outpatient follow-up appointment to determine appropriate surgical intervention pending pathology results of gastric mass. Patient stable and pain controlled. Recommendations: - Await pathology results. - Surgery to ultimately guide treatment. Outpatient appointment has been scheduled for 03/21/2017. - Patient will also likely need to oncology consult once pathology returns. GI will sign off at this time. Please do not hesitate to call if there are any further questions. Problems: Resuscitation Status: CPR: Attempt Resuscitation Attending Statement: No charge note. Patient was d/c'd prior to my availability for bedside rounds. AIDEN BERNAL DO Mar 14, 2017 10:54 Sd Sandoval MD Mar 14, 2017 23:08
--- NOTE | 2017-03-14 16:29 | PCM.DC.MED ---
Discharge Summary Date of Service Mar 14, 2017 Dates of Hospitalization Date of Hospital Admission Mar 13, 2017 at 00:16 Date of Discharge: Mar 14, 2017 Providers: Admitting Physician: Martin Chairez MD Primary Care Physician: Ashley Cotter MD Attending Physician: Danny Whitfield MD Diagnosis at Time of Discharge Diagnosis at Time of Discharge # Large submucosal gastric body mass lesion, present on admission, active #Hypertension #Stuart's thyroiditis, in hypothyroid phase Consultations GI Dr Sandoval surgery Dr carmona Procedures XRay, CTs & MRIs X-RAY CHEST, TWO VIEWS IMPRESSION: Mildly reduced inspiratory volume, no acute disease. Dictated by: Wyatt Herron M.D. on 03/12/2017 at 22:01 CT Abd / Pelvis Interpretation Conclusion: 1. 6.3 x 6 cm proximal gastric mass involving the greater curvature with intraluminal and exophytic component is concerning for neoplasm. Trace left pleural effusion. 2. Normal appendix. No free air, abscess, or bowel obstruction. Interpreted by Hiram Shah MD Study type: Abdominal CT IV contrast Invasive Procedures DATE OF SERVICE: 03/13/2017 PROCEDURE: Esophagogastroduodenoscopy with biopsies. INDICATIONS: A 61-year-old female with acute onset of left upper quadrant pain. CAT scan revealed a gastric mass lesion. EGD is pursued. EQUIPMENT: GIFH-180J SEDATION: Monitored anesthesia as provided by Dr. Yobany Mcqueen (the patient reports that she has had a prior conscious sedation procedure; it in essence failed and she was quite uncomfortable in spite of these medications during colonoscopy some years ago.) COMPLICATIONS: None identified. PROCEDURE INFORMATION: After the risks and benefits were explained, written and verbal informed consent was obtained. The patient was brought into the endoscopy suite and placed into the left lateral decubitus position. Sedation was achieved as above. The scope was introduced into the mouth through the bite block, and advanced to the second portion of the duodenum. The scope was slowly withdrawn to carefully examine the mucosa for any defects or lesions. Retroflexed views were accomplished in the stomach. The stomach was decompressed. The scope removed from the patient who tolerated the procedure well. FINDINGS: 1. Duodenum: This appeared visually unremarkable from the bulb through to the second portion. 2. Esophagus: The squamocolumnar junction correlated with the top of the gastric folds. The GEJ was at about 39 cm from the incisors. The patient had an element of erosive change in the distal esophagus just proximal to the GE junction but no mass effect. The GEJ appeared slightly irregular and I suspect this may just be an element of some mild inflammation right at the cardia side of the GE junction. This was biopsied for histopathologic analysis. 3. Stomach: The patient had a large submucosal multilobulated very firm mass lesion involving the gastric body. This seemed to be about 5 cm or so from the level of the cardia/GE junction. The lesion appeared to be somewhere in the neighborhood of about 4 or 5 cm. There was an element of umbilication in one location consistent with slight ulceration. No evidence of any ongoing bleeding. A couple of large capacity biopsies were acquired. This was quite a vascular lesion and oozed blood for a little longer than would be normal following forceps but spontaneous hemostasis was observed. ENDOSCOPIC DIAGNOSES: 1. Large submucosal gastric body mass lesion. 2. Gastroesophageal junction subtle irregularity - biopsied. 3. Diminutive gastric polyps (not mentioned above). 4. Mild esophagitis. RECOMMENDATIONS: 1. Await histopathology. 2. Anti-reflux therapy would be quite reasonable considering the changes seen at the GE junction and in the distal esophagus. 3. Even if histology is nondiagnostic, because of the apparent submucosal nature of this lesion, I would recommend surgery considering the patient's presentation with symptoms and the very irregular appearance of this lesion. Overall it is quite concerning for malignancy. 4. This would not be surprising if it turns out to be a GIST. However other submucosal lesions obviously remain in the differential. Sd Sandoval MD 03/13/17 [id number] <Electronically signed by Sd Sandoval MD> 03/13/17 8770 Brief History per Gastroenterology Consult Note Juana Lane is a 61-year-old woman with past medical history significant for hypertension, hyperlipidemia, GERD, fibromyalgia, hypothyroidism who presented to the [facility] emergency department yesterday evening from urgent care due to severe sharp left upper quadrant and back pain that started 3 days ago. We, gastroenterology, have been consulted due to CT findings of a 6.3 cm proximal gastric mass concerning for neoplasm. Of note the patient was in her general state of health prior to Saturday. The patient's symptoms started with some mild left lower back pain that she attributed to muscle spasm due to setting up for a family reunion that day. Pain continued and she was unable to sleep on her left side that evening. The next day, Saturday, she developed left upper quadrant sharp stabbing pain that has been consistent and not resolved since this time. The pain has progressively worsened which precipitated her presentation to urgent care and subsequently the ED. Patient denies any associated nausea, vomiting, fever, chills, melena, hematochezia, hematemesis, or weight loss. She has noted no worsening of her heartburn although she does have this intermittently which she treats with [id number] antacids. Patient denies any NSAID use as this upsets her stomach. Patient has no family history of gastric cancers although her mother did have lymphoma. Patient has never had an EGD. She did have a colonoscopy in 2005 which was normal and was told to follow-up in 10 years. Hospital Course Juana Lane is a 61-year-old woman with past medical history significant for hypertension, hyperlipidemia, GERD, fibromyalgia, hypothyroidism who presented to the [facility] emergency department today from urgent care due to severe left upper quadrant and back pain that started 2 days ago. # large gastric mass, present on admission, active -Involving the greater curvature with intraluminal and exophytic component, concerning for neoplasm. Status post endoscopy and biopsy -Dr. Carmona consulted, he will see patient on Mar 21 in office with biopsy results. He will refer her for oncology eval after biopsy -Discharged on PPI twice a day due to suspected acid reflux Chronic issues, present on admission, stable: #Hypertension -Continue home medications #Stuart's thyroiditis, in hypothyroid phase -Continue levothyroxine Discharged home Condition on discharge stable Exam Vital Signs (Last) Date Time Temp Pulse Resp B/P Pulse Ox O2 Delivery O2 Flow Rate FiO2 03/14/17 04:32 36.5 73 16 127/77 98 Room Air Exam General: No acute distress, well-developed, well-nourished, appropriately interactive HEENT: Normocephalic, atraumatic. External ears without defect. Pupils equal, round, and reactive to light and accommodation. Anicteric sclerae, moist conjunctivae, and no lid lag. Oropharynx free of erythema and cobble stoning with moist mucosa. Neck: Supple with full range of motion. No jugular venous distension. No lymphadenopathy or thyromegaly. Cardiovascular: Regular rate and rhythm with no murmurs, rubs, or gallops appreciated Pulmonary: Clear to auscultation bilaterally with no crackles, wheezes, or rhonchi. Normal respiratory effort with no use of accessory muscles. Abdomen: Bowel tones present. Soft, mild tenderness in the left upper quadrant, nondistended. No hepatosplenomegaly or masses appreciated. Extremities: No clubbing, cyanosis, edema, or lymphadenopathy appreciated. Skin: Normal temperature, turgor, and texture; no rash, ulcers, or subcutaneous nodules appreciated. Neurological: Cranial nerves grossly intact. Normal muscle strength, tone, and bulk. Reflexes, coordination, and sensory function within normal limits. No known gait impairment. Psychiatric: Normal mood and affect. Alert and oriented to person, place, and time. Test 03/12/17 21:09 03/12/17 21:10 03/13/17 01:16 03/14/17 07:40 Magnesium Level 2.1mg/dL (1.6-2.6) Lipase 33U/L (13-60) Hold Arredondo Top Tube Received (Received) Hold Urine Received (Received) White Blood Count 6.3th/mm3 (3.8-10.1) Red Blood Count 4.37mil/mm3 (3.90-5.20) Hemoglobin 14.0g/dL (12.0-15.6) Hematocrit 42.1% (35.0-46.0) Mean Corpuscular Volume 96.3fL (81-100) Mean Corpuscular Hemoglobin 32.0pg (27.0-35.0) Mean Corpuscular Hemoglobin Concent 33.3% (32.0-37.0) Red Cell Distribution Width 12.0% (12.3-15.4) Platelet Count 235bil/L (150-400) Neutrophils (%) (Auto) 61.8% (40-74) Lymphocytes (%) (Auto) 28.4% (14-46) Monocytes (%) (Auto) 5.2% (4-12) Eosinophils (%) (Auto) 4.3% (0-5) Basophils (%) (Auto) 0.3% (0-3) Erythrocyte Sedimentation Rate 17mm/hr (0-40) Sodium Level 141mEq/L (134-144) Potassium Level 4.4mEq/L (3.5-5.2) Chloride Level 104mEq/L (97-108) Carbon Dioxide Level 25mmol/L (18-29) Blood Urea Nitrogen 10mg/dL (8-27) Creatinine 0.71mg/dL (0.57-1.00) Estimat Glomerular Filtration Rate 120mL/min (>59) Glucose Level 99mg/dL (60-99) Calcium Level 8.8mg/dL (8.5-10.1) Total Bilirubin 0.5mg/dL (0.0-1.2) Aspartate Amino Transf (AST/SGOT) 29U/L (0-50) Alanine Aminotransferase (ALT/SGPT) 22U/L (0-32) Alkaline Phosphatase 71U/L (25-165) Total Protein 6.9g/dL (6.4-8.4) Albumin 4.1g/dL (3.4-5.0) Discharge Medications Discharge Medications Atenolol (Atenolol) 25 Mg Tablet 25 MG PO BID (Reported) Estradiol (Estradiol) 1 Mg Tablet 1 MG PO DAILY (Reported) Levothyroxine (Levothyroxine) 88 Mcg Tablet 88 MCG PO DAILY (Reported) Pantoprazole DR (Pantoprazole DR) 20 Mg Tablet.dr 20 MG PO BID Prescribed by: DANNY WHITFIELD MD Progesterone,Micronized (Progesterone) 100 Mg Capsule 100 MG PO DAILY (Reported ) As needed Hydromorphone (Hydromorphone) 2 Mg Tablet 4 MG PO Q4H PRN PRN Pain Prescribed by: DANNY WHITFIELD MD Followup Plan Disposition: Home Patient Instructions you were hospitalized due to abdominal pain and found to have large gastric mass. You underwent endoscopy and mass biopsied. Please follow-up with surgeon in 1 week for biopsy results and subsequent management. You also had endoscopic findings of possible acid reflux. Please take Protonix 20 mg by mouth twice a day. Follow-up Provider: Ashley Cotter MD Follow-up with PCP in: 2 weeks Provider: Patsy Carmona MD Follow-up in: 1 week copies to: Ashley Cotter MD; Patsy Carmona MD, Melaku MD Mar 14, 2017 16:29
--- NOTE | 2017-03-15 13:04 | PATH ---
SURGICAL PATHOLOGY Attending Physician:Surinder Lepe CASE STATUS: Signed Out PATIENT NAME: JIM NEAL PID: [id number] : 1955 DATE COLLECTED:03/13/2017 00:00 SPECIMEN: 1: Gastric, Biopsy 2: Esophagus, Biopsy CLINICAL HISTORY: 1). GASTRIC SUBMUCOSAL MASS BIOPSY 2). GASTROESOPHAGEAL JUNCTION BIOPSY FINAL DIAGNOSIS: 1.GASTRIC SUBMUCOSAL MASS, BIOPSY: PORTIONS OF GASTRIC BODY-TYPE MUCOSA WITH NO DIAGNOSTIC ABNORMALITY. No H. pylori organisms identified by H&E stain. Immunohistochemical studies pending; results will be reported as an addendum. Negative for intestinal metaplasia. Negative for dysplasia and malignancy. 2.GASTROESOPHAGEAL JUNCTION, BIOPSY: PORTION OF INFLAMED COLUMNAR MUCOSA WITH VERY RARE, POSSIBLE FOCI OF INTESTINAL METAPLASIA; INSUFFICIENT ATYPICAL TISSUE VOLUME FOR FURTHER EVALUATION. Negative for dysplasia and malignancy. ICD19 K29.7 GROSS DESCRIPTION: The specimen is received in two formalin filled containers labeled with the patient's name. 1). The specimen is labeled "gastric submucosal mass" and consists of 3 portions of tissue which aggregate to 0.3 x 0.3 x 0.3 CM. The specimen is entirely submitted in cassette 1A. 2). The specimen is labeled "GEJ" and consists of a 0.1 x 0.1 x 0.1 CM portion of tissue which is entirely submitted in cassette 2A. 03/14/2017DC MICRO DESCRIPTION: See diagnosis. ICD-9 CODES: CPT CODES: 1: 31175, 88423 2: 95898 PROCEDURE/ADDENDA: Immunohistochemistry SPI Interpretation {Not Entered} Results-Comments This addendum is issued to report the results of immunohistochemistry. 1. Gastric Submucosal Mass, Biopsy: An immunohistochemical stain was performed to evaluate for Helicobacter organisms and is negative. A control stain showed appropriate reactivity. This test was developed and its performance characteristics determined by [facility]. It has not been cleared or approved by the [place]. [place]. Food and Drug Administration. The FDA has determined that such clearance or approval is not necessary. This test is used for clinical purposes. It should not be regarded as investigational or for research. Electronically Signed Out Josefina Tellez MD Electronically Signed Out Lara Hu MD [facility] [address] [place] [address], [place] [address] Technical component performed at [facility], [address], [place], [address]
== END 2017-03-14 12:25 | disposition home or self-care (01) | DRG 392 ==
LOC: SED 20:25 → OFED 03-13 00:16 → OSC 03-13 02:14
PROVIDERS: ADMIT Hospitalist; ATTEND Hospitalist
PROC: 0DB48ZX Excision of Esophagogastric Junction, Via Natural or Artificial Opening Endoscopic, Diagnostic (ICD-10-PCS; 2017-03-13)
PROC: 0DB68ZX Excision of Stomach, Via Natural or Artificial Opening Endoscopic, Diagnostic (ICD-10-PCS; principal; 2017-03-13 14:00)
DX: K31.9 Disease of stomach and duodenum, unspecified (principal); I10 Essential (primary) hypertension; E06.3 Autoimmune thyroiditis; E78.5 Hyperlipidemia, unspecified; K21.9 Gastro-esophageal reflux disease without esophagitis; E03.9 Hypothyroidism, unspecified; K20.9 Esophagitis, unspecified

== ENCOUNTER 2017-04-05 05:51 | Inpatient (IN) | payer OTHER ==
[2017-04-05] VITALS (14 sets, daily range): BP systolic 103–137; BP diastolic 58–90; PULSE 60–76; RESP 9–17; O2SAT 96–100
[~2017-04-05] VITALS: Ht 165.1 cm; Wt 72.5 kg
[2017-04-05] MEDS: Lactated Ringer's 1,000 ML IV SCH ×4 (05:29→15:37)
[~2017-04-05 05:51] MED LIST: ATEN25TA PO; ESTR1TAB24 PO; HYDR2TAB28 PO; LEVO88TA4 PO; PANT20TA2 PO; PROG100C6 PO; [UNRECOGNIZED DRUG - CODE] PO
[2017-04-05] MEDS ORDERED: Clindamycin 900 mg/50 mL D5W IV ONE (06:00)
--- NOTE | 2017-04-05 07:07 | PCM.HPANE ---
Patient Data Surgeon Admitting Provider: Attending Provider:Patsy Dhaliwal MD Primary Care Physician:Ashley Cotter MD Other Provider:Christelle Angela Anesthesia Reason for Visit Gastric Tumor Ht/WT & BMI Height (Feet): 5 Height (Inches): 5.00 Weight (Kilograms): 72.1 Body Mass Index 26.00 Allergies Coded Allergies: shellfish derived (Verified Allergy, Intermediate, 03/13/17) Sulfa (Sulfonamide Antibiotics) (Verified Adverse Reaction, Unknown, vomiting, 03/12/17) codeine (Verified Adverse Reaction, Unknown, vomiting, 03/12/17) Past Anesthesia History Anesthesia History: Denies:: Abnormal Airway, Anesthesia Reactions, Difficult Intubation, Fam Anesthesia Reaction, Fam Malignant Hypertherm, Malignant Hyperthermia Diabetes History Hx Diabetes?: No MRSA MRSA: No Medications Hypertension Medication: Yes Home Meds Incl Beta Vicenta: Yes (Atenolol 25 mg) Date Beta Vicenta Taken: Apr 05, 2017 Time Beta Vicenta Taken: 0500 Active Scripts Hydromorphone 2 Mg Tablet4 Mg PO Q4H PRN Pain #30 TABLET Ref 0 Prov:Danny Domingo MD 03/14/[address] 20 Mg Tablet.dr20 Mg PO BID #60 Prov:Danny Domingo MD 03/14/17 Reported Medications Gabapentin Enacarbil (Horizant)600 Mg Tablet.er600 Mg PO DAILY 04/02/17 Levothyroxine 88 Mcg Gfqmvh27 Mcg PO DAILY Ref 0 03/13/17 Atenolol 25 Mg Rcweng26 Mg PO BID #30 TABLET Ref 0 03/13/17 Progesterone,Micronized (Progesterone)100 Mg [id number] Mg PO DAILY 03/13/17 Estradiol 1 Mg Tablet1 Mg PO DAILY Ref 0 03/13/17 History History of ENT Problems?: Yes HEENT History: Positive for:: Sinus Problem TMJ (grinds teeth, nightguard recommended- doesnt always wear) Denies:: Abnormal Airway Cataracts (starting- no surgery) Difficult Intubation Dysphagia Glaucoma Hearing Problem Denture Type: None Teeth Condition: Within Normal Limits Hx of Heart Problems?: Yes Cardiovascular History: Positive for:: Hypertension Irregular Heartbeat (pac'S) Denies:: AICD Abdominal Aortic Aneurism Atrial Fibrillation Cardiac Surgery Chest Pain Congestive Heart Failure Edema Heart Murmur Pacemaker Rheumatic Fever Thrombophlebitis Valvular Heart Disease Hx of Respiratory Problem?: No Respiratory History: Denies:: Asthma COPD Emphysema Oxygen Administration Pneumonia Pulmonary Embolism Tuberculosis Use of C-PAP Machine Use of Inhalers / NEBS Hx Neurologic Problems?: Yes Neurological History: Denies:: Alzheimer's Disease CVA Dementia Dizziness Headaches Multiple Sclerosis Parkinson's Disease (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 Skin History: Denies:: History Skin Disorders? Pressure Ulcers Hx Musculoskeletal Problems?: Yes Musculoskeletal History: Positive for:: Back Injury (chronic back pain- hx of injections- no prior surgery) Fibromyalgia Osteoarthritis Denies:: Degenerative Joint Joint Replacement Musculoskeletal Trauma Systemic Lupus Hx of Psycho/Social Problems?: No Psycho Social History: Denies:: Anxiety Hx Depression Hx Surgeries?: Yes (, tubal) Hx Any Other Health Problems?: Yes Other History: Positive for:: Thyroid Disease (hashimotos, ) Denies:: Cancer History Blood Transfusions: Positive for:: Accept Blood Products? Denies:: Blood Transfusions Hx Diabetes: No Hx Alcohol Use: YesAlcoholic Drinks Per Day: two to three drinks monthlyHx Substance Use: No Smoking Status: Never Smoker Have You Smoked inLast 12 mo: No Stop/Bang S-Snoring: Do You Snore Loudly: Yes T-Tired: feel tired, fatigued: No O-Obsered: Observed not breath: No P-Blood Pressure: treated: Yes B- Body Mass Index > 35 kg/m2: No A- Age over 50: Yes N- Neck Large Circumference: No G- Gender Male: No JAJA Total Score: 3 JAJA Risk Assessment: High Risk, =/>3 Yes JAJA Category 2: Yes Risk Assessment Category Category 1A: Patient has history of documented sleep apnea, and HAS NOT received any narcotic, sedative or anesthesia administration during this stay. Category 1B: Patient has history of documented sleep apnea, and HAS received any narcotic , sedative or anesthesia administration during this stay Category 2: Patient has SUSPECTED Obstructive Sleep Apnea, and HAS received any narcotic , sedative or anesthesia administration during this stay. Category 3: Patient has SUSPECTED Obstructive Sleep Apnea and HAS NOT received narcotic, sedative or anesthesia administration during this stay. Category 4: Outpatient in Procedural Areas with known sleep apnea or who screen positive for High Risk via the STOP/BANG questionnaire. Exam Exam Vital Signs Vital Signs Date Time Temp Pulse Resp B/P Pulse Ox O2 Delivery O2 Flow Rate FiO2 04/05/17 06:20 36.4 61 16 134/80 98 Room Air General Appearance: Alert, Oriented X3, Cooperative, No Acute Distress HEENT/AIRWAY: MP 2 Lungs: Clear to Auscultation, Normal Air Movement Heart: Exam Unremarkable, Regular Rate/Rhythm, No Murmurs/Rubs/Gallops Meds/Labs/Diagnostics Admission Meds Current Medications Lactated Ringer's (Lr) 1,000 ml @ 120 mls/hr Q8H20M IV Last administered on t 05:29; Start 04/05/17 at 05:00; Stop 04/05/17 at 13:19 Plan Impression Patient chart reviewed, patient interviewed and anesthestic plan with risks, benefits, and alternatives discussed, and informed consent obtained. NPO per Anesth. Guidelines: Yes ASA Physical Status: ASA2 Mod Systemic Disease Anesthetic Support Modalities: Arterial Line Anesthetic Plan: GA Bene/Risks/Altern/Consents: Yes HP Complete Prior to Induction: Yes Marvin Ortega MD Apr 05, 2017 07:07
[2017-04-05] MEDS ORDERED: Bupivacaine-MPF 0.5% 30 mL Inj INFILTRATE ONE (08:00)
[2017-04-05] MEDS ORDERED: Dexamethasone 4 mg/mL Inj ONE (08:31)
[2017-04-05] MEDS ORDERED: fentaNYL-PF 50 mCg/mL 2 mL Inj ONE (08:31)
[2017-04-05] MEDS ORDERED: HYDROmorphone 1 mg/mL Inj ONE (08:31)
[2017-04-05] MEDS ORDERED: Ketamine 10 mg/mL 20 mL Inj ONE (08:31)
[2017-04-05] MEDS ORDERED: Ondansetron 2 mg/mL 2 mL Inj ONE (08:31)
[2017-04-05] MEDS ORDERED: Rocuronium 10 mg/mL 5 mL Inj ONE (08:31)
[2017-04-05] MEDS ORDERED: Propofol 10 mg/mL 20 mL Inj ONE (08:31)
[2017-04-05] MEDS ORDERED: Lactated Ringer's 1,000 ML IV SCH (09:47)
[2017-04-05] MEDS ORDERED: Lactated Ringer's 500 ML IV PRN (09:47)
[2017-04-05] MEDS ORDERED: Ondansetron 2 mg/mL 2 mL Inj IVPUSH PRN ×2 (09:50→13:05)
[2017-04-05] MEDS ORDERED: MetoCLOpramide 5 mg/mL 2 mL Inj IVPUSH PRN ×2 (09:50→13:05)
[2017-04-05] MEDS ORDERED: Phenylephrine 10,000 mCg/mL Inj IVPUSH PRN (09:50)
[2017-04-05] MEDS ORDERED: HYDROmorphone 1 mg/mL Inj IVPUSH PRN (09:50)
[2017-04-05] MEDS ORDERED: Dexamethasone 4 mg/mL Inj IVPUSH PRN (09:50)
[2017-04-05] MEDS ORDERED: EPHEDrine Sulfate 50 mg/mL Inj IVPUSH PRN (09:50)
--- NOTE | 2017-04-05 12:21 | PCM.SURGPO ---
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 Surgical Specimen Removed: Yes Specimen sent to Pathology: Yes Anesthetic Administered: GA Grafts, Implants: None Output, Estimated Blood Loss: 5 Blood Admin during surgery: No Attending Statement Room Worker listed was medically necessary for the successful completion of the case Patsy Dhaliwal MD Apr 05, 2017 12:21
[2017-04-05] MEDS ORDERED: HYDROmorphone 0.5 mg/0.5 mL iSecure Syringe IVPUSH PRN (13:10)
[2017-04-05] MEDS: fentaNYL-PF 50 mCg/mL 2 mL Inj IVPUSH PRN ×2 (13:10→15:00)
--- NOTE | 2017-04-05 14:23 | OP ---
[address] [address] OPERATIVE REPORT PATIENT: JIM NEAL : 1955 MR#: [id number] ADMIT: 04/05/2017 JOB ID: [id number] DATE OF SURGERY: 04/05/2017 PREOPERATIVE DIAGNOSIS(ES): Gastric submucosal mass. 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 PROCEDURE PERFORMED: Laparoscopic partial gastrectomy. SURGEON: Patsy Dhaliwal MD. ASSISTANTS: William Ross MD and Jorje Carlisle PA-C. COMPLICATIONS: None. CONDITION OF THE PATIENT: Stable. INDICATIONS: The patient is a 61-year-old lady who I met on March 13, 2017, when she presented to the hospital with two days of pain in the left upper back and abdomen. She has had back problems in the past and this did not feel like any other. She presented to the emergency department on March 12, 2017, at night and admitted to the hospital with a diagnosis of gastric mass. Dr. Sandoval performed endoscopy with biopsies on March 13, 2017, but the biopsies were nondiagnostic. CT abdomen and pelvis showed a lobulated, partially calcified mass measuring 6.6 cm in the greatest dimension with no obvious fat plane between the mass and the spleen. I then also had a CT chest performed, and it did not show any evidence of metastatic disease. After discussing the risks, benefits and alternatives, and receiving immunizations for possible splenectomy , she presents to the operating room today for resection of the tumor. PROCEDURE DETAILS: She was placed in a supine position, underwent smooth induction of general anesthesia, and then had a Angeles catheter placed. Then, was placed in a lithotomy position with a butt board to support her in a sitting position. We then prepped and draped the abdomen in the usual sterile fashion. Surgical time-out was undertaken using safety checklist, and all were in agreement. We began by making a supraumbilical incision, entered the abdomen using open Librado technique and upsized to a 12 mm after obtaining pneumoperitoneum. After that, I placed a 5 mm port in the right upper quadrant and advanced a liver retractor and exposed the hiatus and tumor. I then placed a 5 mm port in the left upper quadrant and an additional 5 mm port in the left lateral abdomen. I then upsized the 5 mm port in the left upper quadrant near the rib cage to a 12, and placed the last 5 mm port through the falciform ligament. At that point we started dissection by taking down the short gastric vessels along the greater curvature of the stomach inferior to the tumor. I continued to take these vessels around the tumor gently tipping up the tumor, it from this spleen without any evidence of invasion or bleeding. I also took the short gastric vessels superior to the tumor along the greater curvature being able to get a plane there. These were all taken down with double application of laparoscopic LigaSure, and after making sure the tumor is completely separate from all other structures other than the stomach, I tried to see if a laparoscopic stapler would be feasible to start transecting the stomach but because of the broad-based nature of the tumor on the stomach, I decided to go ahead and make a gastrotomy with electrocautery and resected the tumor with a good margin of stomach under direct visualization with electrocautery. After the tumor completely from the stomach, I placed 2-0 silk traction sutures to close the gastrotomy from superiorly all the way down to the mid body where the gastrotomy ended. After that, I used thick tissue loads on the 60 mm EndoGIA stapler to transect the gastrotomy and close it. I had to use three loads. In the upper two loads I reinforced with SeamGuard. At this point, I made a small Pfannenstiel incision and advanced a 15 mm EndoCatch bag through that and placed the tumor within the EndoCatch bag and delivered it out of the Pfannenstiel incision. I sent that off for frozen section and then also extracted the additional gastric margin through the same incision. After that, I closed the fascia of the Pfannenstiel incision with running 0 PDS suture, and I closed both the 12 mm ports with PDS suture and then closed skin with 4-0 Monocryl after irrigating the incisions. The patient tolerated the procedure well and was taken to the recovery room in a stable condition. BHAKTI
[2017-04-05] MEDS: Dextrose 5% Lactated Ringer's 1,000 ML IV SCH (15:57)
[2017-04-05] MEDS: HYDROmorphone PCA 0.2 mg/mL 30 mL Inj IV PRN (16:00)
[2017-04-05] MEDS: Heparin 5,000 Unit/mL Inj SUBQ SCH ×2 (16:09→23:11)
[2017-04-05] MEDS: Acetaminophen IV 1,000 MG in IV Premix 1 EACH IV SCH ×2 (16:49→22:54)
--- NOTE | 2017-04-05 18:40 | NUR ---
Transfer to [facility] Pt. arrived to OSC from PACU at 1530 in stable condition. Drowsy, but alert and talking. Transferred via slider board to hospital bed. Pt. had discomfort with rolling side to side during transfer, but is otherwise comfortable. Vitals stable. at bedside. Incision dressings are clean dry and intact. DEBT [employer] BUDGET COUNSELOR hydromorphone set up and pt. educated on its use. Oriented to room, call light, and falls policy. An hour later, pt. was assisted to bedpan to urinate. Voiding with no issues. So far, DE[employer] BUDGET COUNSELOR and scheduled IV tylenol have been effective at keeping pt. comfortable. IV benadryl administered at 1815 for mild itching.
[2017-04-05] MEDS: Pantoprazole 20 mg ER24 Tablet PO SCH (19:28)
--- NOTE | 2017-04-06 02:28 | NUR ---
Activity/Pain Patient stating need to void, but unable to do so on bedpan. Up to [facility] with one person assist with effective results. Able to void without issue. 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
[2017-04-06] MEDS: HYDROmorphone PCA 0.2 mg/mL 30 mL Inj IV PRN (02:41)
[2017-04-06] MEDS: Dextrose 5% Lactated Ringer's 1,000 ML IV SCH (04:06)
[2017-04-06] MEDS: Acetaminophen IV 1,000 MG in IV Premix 1 EACH IV SCH ×3 (04:07→14:30)
[2017-04-06 04:21] VITALS: RESP 18; O2SAT 100
[2017-04-06 04:34] LABS: BASOPHILS % (AUTO) 0 % (0-3); EOSINOPHILS % (AUTO) 0.2 % (0-5); MONOCYTES % (AUTO) 8.5 % (4-12); Mean Corpuscular Hemoglobin 32.4 pg (27.0-35.0); Mean Corpuscular Volume 97.6 fL (81-100); NEUTROPHILS % (AUTO) 72.6 % (40-74); Platelet Count 177 bil/L (150-400)
[2017-04-06 05:21] VITALS: BP 105/61; PULSE 65; RESP 17; O2SAT 99
[2017-04-06 08:18] VITALS: BP 112/68; PULSE 58; RESP 18
[2017-04-06 08:30] VITALS: RESP 18; O2SAT 99
[2017-04-06] MEDS: Pantoprazole 20 mg ER24 Tablet PO SCH ×2 (08:47→21:27)
[2017-04-06] MEDS: Heparin 5,000 Unit/mL Inj SUBQ SCH ×2 (08:50→18:13)
[2017-04-06] MEDS ORDERED: Nalbuphine 10 mg/mL Inj IV PRN (09:35)
--- NOTE | 2017-04-06 09:42 | PCM.PNSURG ---
Subjective Date of Service: Apr 06, 2017 Visit Information: Gastric Tumor s/p Laparoscopic Partial Gastrectomy 04/05/2017 Post-Op Day # 1 Date of Admission: Apr 05, 2017 at 13:43 Hospital Day # 2 Subjective: Couldn't sleep. Itching from the Opioids Objective Vital Sign- Last 8 Hours Date Time Temp Pulse Resp B/P Pulse Ox O2 Delivery O2 Flow Rate FiO2 04/06/17 09:00 Supplement Oxygen 04/06/17 08:30 18 99 04/06/17 08:18 36.9 58 18 112/68 Nasal Cannula 3.00 04/06/17 05:21 36.4 65 17 105/61 99 Room Air 04/06/17 04:30 Supplement Oxygen 04/06/17 04:21 18 100 Intake and Output- Last 8 Hour 04/06/17 Cumulative From/Thru 07:00 04/02/17 12:08 - 04/06/17 05:33 Intake Total 910 ml 2837 ml Output Total 300 ml 760 ml Balance 610 ml 2077 ml Intake Oral 0 ml 0 ml IV Total 910 ml 2837 ml Output Urine Total 300 ml 750 ml Estimated Blood Loss 10 ml # Bowel Movements 0 0 Abdomen: Soft, Other (dressings dry) Result Diagram: 04/06/17 0405 04/06/17 0405 Assessment & Plan Impression Doing well Problems: Plan Low fat full liquid diet Will plan transition to PO medications Incentive spirometry Ambulation Possible discharge home tomorrow Patsy Dhaliwal MD Apr 06, 2017 09:42
--- NOTE | 2017-04-06 13:20 | NUR ---
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 Diet advanced to full liquids this morning, with Impact Advanced Recovery supplement added to trays. PO intake not yet recorded. Surgery noting patient may be discharged home tomorrow. PMHx:HTN, gastric mass, fibromyalgia, osteoarthritis, Stuart's disease. DIET:Full liquids + Impact Advanced Recovery. LABS: Reviewed. Cr 0.55, Glu 109 ca 8.4, AST 95, ALT 75, Alb 3.7. MEDICATIONS: Reviewed. Synthroid. NUTRITION FOCUSED PHYSICAL ASSESSMENT: GI symptoms / stool: No stool reported.Zion: 22. Skin Integrity: No issues reported. ANTHROPOMETRICS: Current Wt: 72.2 kgBMI: 26.0 kg/m2.Admit weight: 72.57 kg IBW: 47.8 kg (151.8% IBW) ESTIMATED NEEDS (CANCER, SURGERY): Calories: 1814 - 2177 kcal (25 - 30 kcal / kg BW) Protein: 73 - 109 g protein (1.0 - 1.5 g / kg BW) NUTRITION DIAGNOSIS: 1)Increased nutrient needs related to gastric cancer with surgery, as evidenced by SCOAP protocol in place. INTERVENTION: 1) Continue Impact Advanced Recovery all trays. MONITOR/EVALUATE: Diet advance / tolerance, PO intake, labs, GI/nutrition status. Follow up per moderate nutrition risk guidelines.
[2017-04-06 16:30] VITALS: BP 109/69; PULSE 77; RESP 17; O2SAT 97
--- NOTE | 2017-04-06 19:27 | NUR ---
Pain Patient with abd discomfort and some distention noted. Patient using packer denture Dilaudid for pain control with some itching noted.Patient given Benadryl this am for itching. Surgeon called and orders received to try Nubain for itching but have not had to given anything further since this am. Pt with increased pain after lunch discussed with patient to take Po slowly . Patient complained of heart burn this afternoon.
[2017-04-06 20:03] VITALS: BP 125/85; PULSE 77; RESP 18; O2SAT 96
[2017-04-06] MEDS ORDERED: Morphine PCA 1 mg/mL 30 mL Inj IV PRN (21:55)
[2017-04-07] MEDS: Heparin 5,000 Unit/mL Inj SUBQ SCH ×3 (01:14→16:57)
[2017-04-07] MEDS: Dextrose 5% Lactated Ringer's 1,000 ML IV SCH (01:17)
--- NOTE | 2017-04-07 01:45 | NUR ---
Morphine MEAT PASSER/Activity Per Dr. Perez, because of patient report of itching, MEAT PASSER switched from Dilaudid to Morphine. Nubain 5mg IVP administered to patient for itching. Per patient, itching resolved mostly within a couple of hours. Patient ambulated up and down hallway detention. Patient stated legs felt" wobbly" No other complaints at this time. Call light is within reach. Care continues.
[2017-04-07 05:33] VITALS: BP 108/61; PULSE 61; RESP 16; O2SAT 99
[2017-04-07 06:21] VITALS: RESP 18; O2SAT 99
[2017-04-07 08:16] VITALS: BP 111/75; PULSE 65; RESP 16; O2SAT 98
--- NOTE | 2017-04-07 08:40 | DRSVH ---
PROCEDURE: X-RAY ABDOMEN WITH ERECT AND/OR DECUBITUS VIEWS ([id number]) INDICATIONS: Partial gastrectomy TECHNIQUE: 2 views of the abdomen were acquired. COMPARISON: None. FINDINGS: Surgical changes and devices: None. Bowel: No pneumoperitoneum. The bowel gas pattern is normal. Numerous loops of normal caliber gas- filled small bowel and colon. Soft tissues: No masses; visualized solid organ contours appear normal in size. No suspicious abdom inal calcifications. Bones: No suspicious bony abnormalities. IMPRESSION: Nonobstructive bowel gas pattern. Dictated by: Braden Bangura M.D. on 04/07/2017 at 8:36 Approved by: Braden Bangura M.D. on 04/07/2017 at 8:38
[2017-04-07] MEDS: Polyethylene Glycol (PEG) 17 Gm Powder PO SCH (09:42)
[2017-04-07] MEDS: Pantoprazole 20 mg ER24 Tablet PO SCH ×2 (09:44→21:03)
--- NOTE | 2017-04-07 11:04 | NUR ---
Social Work: Screening/Multidisciplinary Rounds D: EMR reviewed. Pt is a 61 y/o female admitted [place] - with a readmit score not assigned - for gastric tumor per H&P. Pt's insurance is [employer] and PCP is Ashley Cotter MD. Pt's NOK is spouse [address] [phone]. Pt discussed in multidisciplinary rounds and is not medically stable for discharge, anticipate 1-2 more days. No SW needs identified, no MD orders received. SW will continue to follow for MD orders or SW needs that may arise. A: Pt who is independent at baseline P: Pt anticipated to discharge home with spouse via POV. No SW needs identified, no MD orders received. SW will continue to follow for MD orders or SW needs that may arise. DELORES Lora
--- NOTE | 2017-04-07 11:07 | PCM.PNSURG ---
Subjective Date of Service: Apr 07, 2017 Visit Information: Gastric Tumor s/p Laparoscopic Partial Gastrectomy 04/05/2017 Post-Op Day # 2 Date of Admission: Apr 05, 2017 at 13:43 Hospital Day # 3 Subjective: Got some sleep, tolerating fluids but some reflux Objective Vital Sign- Last 8 Hours Date Time Temp Pulse Resp B/P Pulse Ox O2 Delivery O2 Flow Rate FiO2 04/07/17 08:16 36.7 65 16 111/75 98 Room Air 04/07/17 06:21 18 99 04/07/17 05:33 36.9 61 16 108/61 99 Room Air Intake and Output- Last 8 Hour 04/07/17 Cumulative From/Thru 07:00 04/02/17 12:08 - 04/07/17 06:14 Intake Total 869 ml 4662 ml Output Total 800 ml 3260 ml Balance 69 ml 1402 ml Intake Oral 350 ml 1306 ml IV Total 519 ml 3356 ml Output Urine Total 800 ml 3250 ml Estimated Blood Loss 10 ml # Voids 2 2 # Bowel Movements 0 0 Abdomen: Soft SURGICAL WOUND : Wound General Appearence: Steri Strips Result Diagram: 04/06/17 0405 04/06/17 0405 Diagnostics: AXR shows gas in the colon Assessment & Plan Impression Doing well Problems: Plan Transition off IV opioids Suppository Advance diet as tolerated Discharge planning based on progress Patsy Dhaliwal MD Apr 07, 2017 11:07
[2017-04-07] MEDS ORDERED: POLY17PO6 PO (12:03)
[2017-04-07] MEDS ORDERED: Bisacodyl RECTAL (12:03)
[2017-04-07] MEDS ORDERED: OXYC5TAB72 PO (12:03)
--- NOTE | 2017-04-07 12:06 | PCM.DISURG ---
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
[2017-04-07 13:30] VITALS: BP 121/64; PULSE 66; RESP 17; O2SAT 98
--- NOTE | 2017-04-07 17:04 | NUR ---
[facility] [employer] [facility] Morphine Discontinued [facility] Morphine discontinued today mid day; pt tolerating 5mg PO Roxicodone well and pain level 3-4/10 tolerable per pt. Care ongoing.
[2017-04-07] MEDS ORDERED: Sodium Biphos-Phos 133 mL Enema RECTAL ONE (20:55)
[2017-04-07 21:30] VITALS: BP 131/81; PULSE 73; RESP 18; O2SAT 98
[2017-04-08] MEDS: Heparin 5,000 Unit/mL Inj SUBQ SCH ×2 (00:41→08:15)
--- NOTE | 2017-04-08 01:25 | NUR ---
GI; pt c/o increasing gas pains. Fleets enema given with one small bm and one medium bm plus lots of flatus resulting. Pt ambulated in hallway this pm.
--- NOTE | 2017-04-08 04:34 | NUR ---
PSYCH; pt sleeping well during the night. No request for pain rx.
[2017-04-08] MEDS ORDERED: Lactated Ringer's 1,000 ML IV ONE (05:00)
[2017-04-08] MEDS: Pantoprazole 20 mg ER24 Tablet PO SCH (08:14)
[2017-04-08] MEDS: Polyethylene Glycol (PEG) 17 Gm Powder PO SCH (08:15)
[2017-04-08 08:18] VITALS: BP 146/85; PULSE 73
--- NOTE | 2017-04-08 09:57 | PCM.PNSURG ---
Subjective Date of Service: Apr 08, 2017 Visit Information: Gastric Tumor s/p Laparoscopic Partial Gastrectomy 04/05/2017 Post-Op Day # 3 Date of Admission: Apr 05, 2017 at 13:43 Hospital Day # 4 Subjective: Feels good after the enema last night Objective Vital Sign- Last 8 Hours Date Time Temp Pulse Resp B/P Pulse Ox O2 Delivery O2 Flow Rate FiO2 04/08/17 08:18 73 146/85 Intake and Output- Last 8 Hour 04/08/17 Cumulative From/Thru 07:00 04/02/17 12:08 - 04/08/17 06:00 Intake Total 865 ml 6893 ml Output Total 1250 ml 6910 ml Balance -385 ml -17 ml Intake Oral 600 ml 3106 ml IV Total 265 ml 3787 ml Output Urine Total 1250 ml 6900 ml Estimated Blood Loss 10 ml # Voids 3 5 # Bowel Movements 2 2 Abdomen: Soft, Other (Incisions C/D/I) Result Diagram: 04/06/17 0405 04/06/17 0405 Assessment & Plan Impression Doing well Problems: Plan Discharge Home Ambulate Wean off opioids as able Follow up in 1 week Patsy Dhaliwal MD Apr 08, 2017 09:57
--- NOTE | 2017-04-08 12:00 | NUR ---
Social Work: Readiness for Discharge/Multidisciplinary Rounds D: EMR reviewed. Pt is on day 3 of hospitalization. Pt discussed in multidisciplinary rounds and is medically stable for discharge home today. No SW needs identified, no MD orders received. SW will continue to follow for MD orders or SW needs that may arise. A: Pt who is independent at baseline P: Pt anticipated to discharge home with spouse via POV. No SW needs identified, no MD orders received. SW will continue to follow until time of discharge. DELORES Lora
--- NOTE | 2017-04-08 13:41 | PCM.DC.SUR ---
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 Other chronic conditions: 1. Fibromyalgia 2. Hypothyroidism 3. Hypertension 4. Seasonal allergies 5. Gastroesophageal reflux disease Problems: Operation Laparoscopic partial gastrectomy Brief History and Physical: The patient is a 61-year-old lady who was initially evaluated on March 13, 2017 , when she presented to the hospital with two days of pain in the left upper back and abdomen. She has had back problems in the past and this did not feel like previous back pain. She presented to the emergency department on March 12, 2017 , at night and admitted to the hospital with a diagnosis of gastric mass. Dr. Sandoval performed endoscopy with biopsies on March 13, 2017, but the biopsies were nondiagnostic. CT abdomen and pelvis showed a lobulated, partially calcified mass measuring 6.6 cm in the greatest dimension with no obvious fat plane between the mass and the spleen. A CT chest was performed, and it did not show any evidence of metastatic disease. Consultants: None Hospital Course: The patient was admitted and underwent the above-mentioned operation without complication. Other then brief pruritus on her first postsurgical morning which was attributed to narcotics, her recovery was uneventful. Full liquid diet was initiated on the first postsurgical day. The patient was transitioned to oral analgesics on the second postsurgical day. An enema was administered on the evening of the second postsurgical day with good results. The patient was stable for discharge on her third postsurgical day. Pathology: Pending Disposition: The patient was discharged to home on her third postsurgical day at which time we she was tolerating an oral diet with no nausea or vomiting, her bowels were working, pain was well controlled on oral analgesic, she was ambulating without assistance, her wounds appeared to be healing, and postsurgical pruritus had resolved. Follow-up Plan: She will follow-up in the office with Dr. Dhaliwal in 2 weeks. ([Bisacodyl]) 10 MG SUPP 10 MG RECTAL DAILY PRN PRN For Constipation Atenolol (Atenolol) 25 Mg Tablet 25 MG PO BID (Reported) Estradiol (Estradiol) 1 Mg Tablet 1 MG PO DAILY (Reported) Gabapentin Enacarbil (Horizant) 600 Mg Tablet.er 600 MG PO DAILY (Reported) Hydromorphone (Hydromorphone) 2 Mg Tablet 4 MG PO Q4H PRN PRN Pain Levothyroxine (Levothyroxine) 88 Mcg Tablet 88 MCG PO DAILY (Reported) Pantoprazole DR (Pantoprazole DR) 20 Mg Tablet.dr 20 MG PO BID Polyethylene Glycol 3350 (Miralax) 17 Gm Powd.pack 17 GM PO DAILY Progesterone,Micronized (Progesterone) 100 Mg Capsule 100 MG PO DAILY (Reported ) oxyCODONE (oxyCODONE) 5 Mg Tablet 5 MG PO Q4H PRN PRN For Moderate Pain copies to: Ashley Cotter MD; Sd Sandoval MD, Fred H PA-C Apr 08, 2017 13:41
--- NOTE | 2017-04-08 14:03 | NUR ---
NUTRITION CONSULT Spoke with pt regarding diet s/p gastric surgery. Provided handouts.
--- NOTE | 2017-04-08 14:38 | NUR ---
Social Work: Discharge D: EMR reviewed. Pt is on day 3 of hospitalization. Pt discussed in multidisciplinary rounds and is medically stable for discharge home today. No SW needs identified, no MD orders received. A: Pt who is independent at baseline P: Pt discharged home with spouse via POV. No SW needs identified, no MD orders received. DELORES Lora
--- NOTE | 2017-04-08 15:00 | NUR ---
Discharge Patient discharged home. IV's DC'd and intact. Patient encouraged to ambulated to help alleviate gas pain and increase water and take stool softeners while taking narcotics. Discharge instructions given with no questions. RX's sent with patient. Patient and family members gathered all belongings. HEALTH SOCIAL WORK PROFESSOR escorted patient out via W/C.
--- NOTE | 2017-04-16 07:49 | PCM.ANEP1 ---
Post Anesthesia PACU Phase 1 Assessment Anesthetic Administered: GA Level of Alertness: Drowsy, not talking LEON's with Equal Strength: Yes Pain: No Pain Scale Score: 4 Nausea or Vomiting: No CV Function & Hydration Stable: No Airway Device: Oralpharangeal Airway Oxygen Delivery: Simple Mask Lungs: Clear to Auscultation, Normal Air Movement Dermatome Level: Full Sensation PACU Phase 2 Assessment Complications: No Follow up Care: No Patient Instructions Provided: N/A Marvin Ortega MD Apr 16, 2017 07:48
== END 2017-04-08 14:20 | disposition home or self-care (01) | DRG 376 ==
LOC: SAS 05:51 → OSC 13:43
PROVIDERS: ADMIT Student in an Organized Health Care Education/Training Program; ATTEND Student in an Organized Health Care Education/Training Program
PROC: 0DB64ZZ Excision of Stomach, Percutaneous Endoscopic Approach (ICD-10-PCS; principal; 2017-04-05 07:30)
DX: C16.6 Malignant neoplasm of greater curvature of stomach, unspecified (principal); I10 Essential (primary) hypertension; E78.5 Hyperlipidemia, unspecified; K21.9 Gastro-esophageal reflux disease without esophagitis; E03.9 Hypothyroidism, unspecified; M79.7 Fibromyalgia